=== PATIENT | male | born 1995 | race Caucasian/White ===

== ENCOUNTER 2025-04-08 09:00 | Emergency (ER) | payer BC ==
[~2025-04-08] VITALS: Ht 172.7 cm; Wt 81.6 kg
[2025-04-08 09:26] VITALS: BP 154/80; TEMP 97.6; O2SAT 99
[2025-04-08] MEDS ORDERED: IBUP-1957 PO (09:37)
[2025-04-08] MEDS ORDERED: LIDO1ADH71 TOP (09:37)
[2025-04-08] MEDS ORDERED: METH4TAB3 PO (09:37)
[2025-04-08] MEDS ORDERED: METH-649 PO (09:37)
[2025-04-08] MEDS ORDERED: KETOROLAC TROMETHAMINE INJ 30 MG/ML VIAL ONE (09:51)
[2025-04-08] MEDS ORDERED: LIDOCAINE 5% (PATCH) 1 EA PATCH TP ONE (09:51)
[2025-04-08] MEDS ORDERED: METHOCARBAMOL (500MG) 500 MG TABLET ONE (09:52)
[2025-04-08] MEDS: METHOCARBAMOL (750MG) 750 MG TABLET PO STA (09:54)
[2025-04-08] MEDS: LIDOCAINE 5% (PATCH) 1 EA PATCH TP STA (09:55)
[2025-04-08] MEDS: KETOROLAC TROMETHAMINE INJ 30 MG/ML VIAL IM ONE (09:55)
== END 2025-04-08 10:03 | disposition home or self-care (01) ==
LOC: ER 09:06
DX: M54.12 Radiculopathy, cervical region (principal)
CPT/HCPCS: 99284; 96372; J1885; J7512